=== PATIENT | male | born 1985 | race Hispanic/Latino ===

== ENCOUNTER 2018-03-24 15:18 | Emergency (ER) | payer SELFPAY ==
[~2018-03-24] VITALS: Ht 175.3 cm; Wt 108.9 kg
--- NOTE | 2018-03-24 16:27 | Diagnostic Imaging Report ---
EXAMINATION: PA and lateral views of the chest. COMPARISON: None CLINICAL HISTORY: Chest pain DISCUSSION: Lines/tubes: None. Lungs: The lungs are well inflated and clear. No pneumonia or pulmonary edema. Pleura: There is no pleural effusion or pneumothorax. Heart and mediastinum: The cardiomediastinal silhouette is normal. Bones and soft tissues: No acute bony abnormalities. IMPRESSION: No acute cardiopulmonary abnormalities. Signed by: Dr. Danny Tejada M.D. on 03/24/2018 4:23 PM
[2018-03-24] MEDS ORDERED: PANTOPRAZOLE SO40 MG PO (16:59)
[2018-03-24] MEDS ORDERED: PEPCID20 MG PO (16:59)
[2018-03-24] MEDS ORDERED: MAGNESIUM/ALUMINUM/SIMETHICONE 30 ML UDC PO ONE (17:15)
== END 2018-03-24 17:15 | disposition home or self-care (01) ==
LOC: FSED 15:18
DX: R07.89 Other chest pain (principal); K21.9 Gastro-esophageal reflux disease without esophagitis; E78.5 Hyperlipidemia, unspecified
CPT/HCPCS: 71046; 80053; 82553; 84484; 85025; 93005; 99284